=== PATIENT | male | born 1955 | race Caucasian/White ===

== ENCOUNTER → 2018-11-27 14:29 | Outpatient (CLI) | payer MEDICARE ==
[2012-02-01 14:59] VITALS: BMI 34.9
== END | disposition home or self-care (01) ==
LOC: D.US 14:29 → D.MRI 16:00
PROVIDERS: ATTEND Emergency Medicine
DX: G45.9 Transient cerebral ischemic attack, unspecified (principal)

== ENCOUNTER 2018-12-14 13:58 | Emergency (ER) | payer MEDICARE ==
[2018-12-14 14:02] VITALS: BMI 33.5
[2018-12-14] MEDS ORDERED: PLAVIX75 MG PO (16:34)
[2018-12-14 16:45] VITALS: BP 126/64
== END 2018-12-14 16:50 | disposition home or self-care (01) ==
LOC: D.ER 13:58
DX: I63.9 Cerebral infarction, unspecified (principal); G81.94 Hemiplegia, unspecified affecting left nondominant side; E11.649 Type 2 diabetes mellitus with hypoglycemia without coma; Z79.4 Long term (current) use of insulin